=== PATIENT | male | born 1955 | race Caucasian/White ===

== ENCOUNTER 2017-01-21 07:19 | Inpatient (IN) | payer BC, MEDICARE ==
[2017-01-21] MEDS ORDERED: CYMBALTA60 M1 PO (08:25)
[2017-01-21] MEDS ORDERED: ASPIRIN EC81 MG PO (08:25)
[2017-01-21] MEDS ORDERED: HYDROCODON-ACE1 EA16 PO (08:26)
[2017-01-21] MEDS ORDERED: LUNESTA1 M1 PO (08:26)
[2017-01-21] MEDS ORDERED: PRINIVIL10 M1 PO (08:26)
[2017-01-21] MEDS ORDERED: XARELTO15 M1 PO (08:27)
[2017-01-21] MEDS ORDERED: LUNESTA3 M1 PO (08:27)
[2017-01-21] MEDS ORDERED: OMEPRAZOLE20 M4 PO (08:27)
[2017-01-21] MEDS ORDERED: SYNTHROID100 MC1 PO (08:27)
[2017-01-21] MEDS ORDERED: AMBIEN CR12.5 MG PO (08:28)
[2017-01-21] MEDS ORDERED: TRAZODONE HCL150 M1 PO (08:28)
[2017-01-21] MEDS ORDERED: AMLODIPINE BESY10 M1 PO (08:28)
[2017-01-21 10:54] LABS: BASO % 0.6 % (0-2); BASO ABSOLUTE COUNT 0.1 tho/cmm (0.0-0.2); EOS % 3.8 % (0-7); EOSINOPHIL ABSOLUTE COUNT 0.5 tho/cmm (0.0-0.7); HCT-HEMATOCRIT 45.1 % (36.0-53.5); HGB-HEMOGLOBIN 15.4 gm/dl (13.5-17.0); IMMATURE GRANULOCYTES ABSOLUTE 0.13 tho/cmm (0-0.03); LYMPH % 16.5 % (20-45); LYMPH ABSOLUTE COUNT 2.1 tho/cmm (0.8-4.5); MCH (MEAN CORPUSCULAR HGB) 30.4 pg (28.0-32.0); MCHC MEAN CORPUSCULAR HGB CONC 34.1 % (32.0-36.0); MEAN PLATELET VOLUME 9.3 cmc (9.4-12.4); MONOCYTE ABSOLUTE COUNT 1.8 tho/cmm (0.0-1.2); NEUTROPHIL ABSOLUTE COUNT 8.3 tho/cmm (1.6-8.0); NEUTROPHIL-AUTOMATED 8.3 tho/cmm (1.6-8.0); NEUTROPHILS % 64.1 % (40-80); PLATELET COUNT 283 tho/cmm (150-450); RED BLOOD COUNT 5.07 mil/cmm (4.40-5.70); WHITE BLOOD COUNT 12.9 tho/cmm (4.0-10.0)
[2017-01-21 10:56] LABS: INR 1.3 INR (0.9-1.1); PROTHROMBIN TIME 14.8 SECONDS (9.0-13.6)
[2017-01-21 11:31] LABS: URINE BILIRUBIN NEGATIVE (NEG); URINE BLOOD LARGE (NEG); URINE GLUCOSE (UA) NEGATIVE (NEG); URINE KETONE SMALL (NEG); URINE LEUKOCYTE ESTERASE POSITIVE (NEG); URINE NITRITE POSITIVE (NEG); URINE PROTEIN MODERATE (NEG)
[2017-01-21 11:32] LABS: URINE APPEARANCE CLOUDY; URINE COLOR BROWN
[2017-01-21 11:53] LABS: URINE RBC FULL FIELD /[HPF] (0-5)
[2017-01-21 11:55] LABS: URINE BACTERIA 1+; URINE EPITHELIAL CELLS 0 /[HPF] (0-10)
[2017-01-22 05:50] LABS: BASO % 0.7 % (0-2); BASO ABSOLUTE COUNT 0.1 tho/cmm (0.0-0.2); EOS % 3.8 % (0-7); EOSINOPHIL ABSOLUTE COUNT 0.5 tho/cmm (0.0-0.7); HCT-HEMATOCRIT 44.3 % (36.0-53.5); HGB-HEMOGLOBIN 14.9 gm/dl (13.5-17.0); IMMATURE GRANULOCYTES ABSOLUTE 0.16 tho/cmm (0-0.03); IMMATURE GRANULOCYTES PERCENT 1.3 % (0-0.3); LYMPH % 22.6 % (20-45); LYMPH ABSOLUTE COUNT 2.7 tho/cmm (0.8-4.5); MCH (MEAN CORPUSCULAR HGB) 30.1 pg (28.0-32.0); MCHC MEAN CORPUSCULAR HGB CONC 33.6 % (32.0-36.0); MCV (MEAN CELL VOLUME) 89.5 fl (82.0-96.0); MEAN PLATELET VOLUME 9.2 cmc (9.4-12.4); MONO % 13.5 % (0-12); MONOCYTE ABSOLUTE COUNT 1.6 tho/cmm (0.0-1.2); NEUTROPHILS % 58.1 % (40-80); PLATELET COUNT 304 tho/cmm (150-450); RED BLOOD COUNT 4.95 mil/cmm (4.40-5.70)
[2017-01-22 05:59] LABS: CREATININE 0.73 mg/dl (0.60-1.30); eGFR VALUE FOR BLACK >90 mL/Min
[2017-01-22 20:59] LABS: ALB/GLOB RATIO 0.6 (0.8-2.0); ALBUMIN 3.2 g/dl (3.5-5.0); ALKALINE PHOSPHATASE 87 U/L (33-138); ALT/SGPT 28 U/L (12-78); BILIRUBIN,TOTAL 0.6 mg/dl (0.0-1.5); BLOOD UREA NITROGEN 20 mg/dl (6-24); C-REACTIVE PROTEIN 11.5 mg/dl (0-0.9); CALCIUM 8.9 mg/dl (8.5-10.5); CARBON DIOXIDE-VENOUS 26 mmol/L (22-32); CHLORIDE 99 mmol/l (96-110); CREATININE 1.02 mg/dl (0.60-1.30); GLUCOSE 120 mg/dL (70-110); SODIUM 135 mmol/L (135-145); eGFR VALUE FOR BLACK 90 mL/Min
[2017-01-22 21:02] LABS: ANION GAP 14 mmol/L (0-20); AST/SGOT 31 U/L (10-40); POTASSIUM 4.1 mmol/L (3.7-5.1)
[2017-01-22 21:14] LABS: PROCALCITONIN 0.05 ng/ml (0.05-0.09)
[2017-01-23 07:27] LABS: BASO % 0.7 % (0-2); BASO ABSOLUTE COUNT 0.1 tho/cmm (0.0-0.2); EOS % 3.8 % (0-7); EOSINOPHIL ABSOLUTE COUNT 0.4 tho/cmm (0.0-0.7); HCT-HEMATOCRIT 45.5 % (36.0-53.5); HGB-HEMOGLOBIN 15.4 gm/dl (13.5-17.0); IMMATURE GRANULOCYTES ABSOLUTE 0.22 tho/cmm (0-0.03); IMMATURE GRANULOCYTES PERCENT 1.9 % (0-0.3); LYMPH ABSOLUTE COUNT 2.3 tho/cmm (0.8-4.5); MCHC MEAN CORPUSCULAR HGB CONC 33.8 % (32.0-36.0); MCV (MEAN CELL VOLUME) 88.7 fl (82.0-96.0); MEAN PLATELET VOLUME 9.2 cmc (9.4-12.4); MONO % 12.1 % (0-12); MONOCYTE ABSOLUTE COUNT 1.4 tho/cmm (0.0-1.2); NEUTROPHIL ABSOLUTE COUNT 7.2 tho/cmm (1.6-8.0); NEUTROPHIL-AUTOMATED 7.2 tho/cmm (1.6-8.0); NEUTROPHILS % 61.5 % (40-80); PLATELET COUNT 346 tho/cmm (150-450); RED BLOOD COUNT 5.13 mil/cmm (4.40-5.70); RED CELL DISTRIBUTION WIDTH 13.1 % (12.4-16.4); WHITE BLOOD COUNT 11.7 tho/cmm (4.0-10.0)
[2017-01-23 07:38] LABS: ANION GAP 13 mmol/L (0-20); BLOOD UREA NITROGEN 17 mg/dl (6-24); C-REACTIVE PROTEIN 10.3 mg/dl (0-0.9); CALCIUM 9.1 mg/dl (8.5-10.5); CARBON DIOXIDE-VENOUS 27 mmol/L (22-32); CHLORIDE 103 mmol/l (96-110); GLUCOSE 117 mg/dL (70-110); SODIUM 139 mmol/L (135-145); eGFR VALUE FOR BLACK >90 mL/Min
[2017-01-24] MEDS ORDERED: XARELTO20 M1 PO (13:25)
[2017-01-24] MEDS ORDERED: PROSCAR5 M1 PO (13:28)
== END 2017-01-24 14:12 | DRG 175 ==
LOC: PCUB 07:19 → 5WE 20:00
PROVIDERS: Family Medicine; Registered Nurse; ADMIT Internal Medicine
PROC: 05HD33Z Insertion of Infusion Device into Right Cephalic Vein, Percutaneous Approach (ICD-10-PCS; principal; 2017-01-21)
DX: I26.09 Other pulmonary embolism with acute cor pulmonale (principal); I69.854 Hemiplegia and hemiparesis following other cerebrovascular disease affecting left non-dominant side; I10 Essential (primary) hypertension; I82.4Z1 Acute embolism and thrombosis of unspecified deep veins of right distal lower extremity; N13.8 Other obstructive and reflux uropathy; N39.0 Urinary tract infection, site not specified; Z68.41 Body mass index [BMI] 40.0-44.9, adult; Z66 Do not resuscitate; R31.9 Hematuria, unspecified; F10.21 Alcohol dependence, in remission; F17.220 Nicotine dependence, chewing tobacco, uncomplicated; E66.9 Obesity, unspecified; E78.5 Hyperlipidemia, unspecified; F32.9 Major depressive disorder, single episode, unspecified; E11.9 Type 2 diabetes mellitus without complications; F41.9 Anxiety disorder, unspecified; N40.1 Benign prostatic hyperplasia with lower urinary tract symptoms; N32.9 Bladder disorder, unspecified; Z79.82 Long term (current) use of aspirin
CPT/HCPCS: C1751; C8929; J1644; J1815; J1940; J2543; J7030; J7050; Q9967